=== PATIENT | female | born 1985 | race African-American/Black ===

== ENCOUNTER 2017-09-01 18:59 | Emergency (ER) | payer MEDICAID ==
--- NOTE | 2017-09-01 20:17 | PD ---
HPI Chief Complaint pelvic pain Date Seen: Sep 01, 2017 Time Seen: 20:13 Travel History International Travel<30 Days: No Contact w/Intl Traveler<30Days: No Known Affected Area: No History of Present Illness HPI Pt is a 22y/o @ 37.2wks. She has PNC with Rita Kim. She presents reporting b/l groin pain. No ctx, LOF, VB. +FM. Denies dysuria. She has a h/ o CSx4. Weeks Gestation: 37 Para: 4 : 5 History Past Medical History Medical History: Denies Significant Hx Obstetric History Obstetric History CSx4 Past Surgical History Narrative Surgical CSx4 Family History Family History: Negative Social History Alcohol Use: No Tobacco Use: No Substance Abuse: No Review of Systems Except as stated in HPI: all other systems reviewed are Neg Physical Exam Narrative General: well developed, well nourished, no acute distress HEENT: normocephalic atraumatic, extraocular movements intact, neck supple Abdomen: soft, gravid, nontender, nondistended Uterus: fundus term Extremities: full range of motion Skin: normal coloration, no rashes, no suspicious skin lesions noted Neurologic: cranial nerves 2-12 grossly intact, normal muscle tone, normal gait Psychiatric: normal mood and affect, appropriate FHTs: 135, +accels, no decels, moderate variability, reactive [place]: quiet Cvx: deferred Data Data Vital Signs Reviewed: Yes Orders Orders Vital Signs (Adult) .ON ADMISSION (09/01/17 20:12) ^ Labor Status (09/01/17 20:12) Urinalysis - C+S If Indicated (09/01/17 20:12) ^ Non Stress Test (09/01/17 20:12) Ed Discharge Order (09/01/17 20:12) MDM Plan 32y/o @ 37.2wks with pelvic pain, UTI. -- NST reactive -- toco quiet -- UTI, macrobid Rx -- has PNV tmw with Rita -- has c/s consult 09/11 Dispo: precautions reviewed Diagnosis Diagnosis: Primary Impression: 37 weeks gestation of Additional Impressions: Pelvic pain affecting UTI (urinary tract infection) during History of section Grand multipara in labor in third trimester Disposition: DISCHARGE HOME Condition: Stable Patient Instructions: General Instructions, Having Your Baby: The Labor Process (GEN), Urinary Tract Infection in (ED) Additional Instructions: RETURN FOR CONTRACTIONS, LOSS OF FLUID (WATER BREAKING), VAGINAL BLEEDING, OR DECREASED MOVEMENT DRINK 8-10 LARGE GLASSES OF WATER EVERY DAY MACROBID 100MG TAKE ONE PILL TWICE A DAY FOR 7 DAYS. FINISH ALL PILLS. KEEP SCHEDULED APPOINTMENT WITH YOUR PROVIDER Departure Forms: Tests/Procedures Ben Toure MD Sep 01, 2017 20:17
[2017-09-01 20:48] LABS: AMORPHOUS SEDIMENT, URINE RARE; BACTERIA, URINE OCC /hpf; BILIRUBIN, URINE NEG (NEG); BLOOD, URINE SMALL (NEG); GLUCOSE,URINE NEG (NEG); KETONE, URINE NEG (NEG); MUCUS URINE FEW /lpf (OCC); NITRITE,URINE NEG (NEG); PH, URINE 6.5 (5.0-8.5); SQUAMOUS EPITHELIAL CELL URINE 19 /hpf (0-5); URINE COLOR YELLOW (YELLW/STRAW); URINE LEUKOCYTE ESTERASE LARGE (NEG)
== END 2017-09-01 20:05 | disposition home or self-care (01) ==
LOC: HOBED 18:59
DX: O23.43 Unspecified infection of urinary tract in pregnancy, third trimester (principal); Z3A.37 37 weeks gestation of pregnancy
CPT/HCPCS: 59025; 81001

== ENCOUNTER 2017-09-13 07:37 | Inpatient (IN) | payer MEDICAID ==
[~2017-09-13] VITALS: Ht 160 cm; Wt 125.0 kg
[2017-09-13] VITALS (25 sets, daily range): BP systolic 103–116; BP diastolic 53–70; PULSE 70–100; RESP 15–20; TEMP 97.5–97.6; O2SAT 100
--- NOTE | 2017-09-13 08:20 | HHI.HP ---
HPI Chief Complaint Scheduled Date Seen: Sep 13, 2017 (Carlton Chester MD R2) Travel History International Travel<30 Days: No Contact w/Intl Traveler<30Days: No (Carlton Chester MD) History of Present Illness HPI Ms. Daniels is a 32-year-old presenting at 39/02 weeks gestation for her scheduled with tubal ligation. She reports no new complaints today and denies complete review of systems including no recent fevers, chills, shortness of breath, chest pain, NVD, vomiting, or calf tenderness. She has been receiving care with Rita Kim at [facility] and reported no complications thus far. She was recently treated for UTI with oral antibiotic and currently has no residual symptoms. She's had 4 previous C- sections without complications per her report. She endorses good movement and denies any vaginal bleeding, vaginal discharge, loss of fluid, or dysuria. Tubal ligation consent is within the chart. Weeks Gestation: 39 Para: 4 : 5 (Carlton Chester MD) History Past Medical History Narrative Medical Patient reports no past medical history. (Carlton Chester MD) Obstetric History Obstetric History -4 previous C-sections at term, no complications reported (Carlton Chester MD) Past Surgical History Narrative Surgical -4 C-sections reported (Carlton Chester MD) Family History Narrative Family History No family medical history reported (Carlton Chester MD) Social History Narrative Social History Patient reports no alcohol, tobacco, or illicit drug use during (Carlton Chester MD) Allergies-Medications (Allergen,Severity, Reaction): Coded Allergies: No Known Allergies (Unverified , 09/13/17) Review of Systems Except as stated in HPI: all other systems reviewed are Neg (per history of present illness) (Carlton Chester MD) Physical Exam Narrative GENERAL: Well-nourished, well-developed patient. SKIN: Warm and dry. HEAD: Normocephalic and atraumatic. EYES: No scleral icterus. No injection or drainage. ENT: No nasal drainage noted. Mucous membranes pink. Airway patent. NECK: Supple, trachea midline. No JVD. CARDIOVASCULAR: Regular rate and rhythm without murmurs, gallops, or rubs. RESPIRATORY: Breath sounds equal bilaterally. No accessory muscle use. ABDOMEN/GI: Abdomen soft, non-tender, bowel sounds present, no rebound, no guarding Gravid to 39 weeks size FHT's: Category: 1 Baseline: 140s Reactive: Positive Variability: Moderate Decels: None EXTREMITIES: No cyanosis or edema. BACK: Nontender without obvious deformity. No CVA tenderness. NEUROLOGICAL: Awake and alert. Motor and sensory grossly within normal limits. Five out of 5 muscle strength in all muscle groups. Normal speech. (Carlton Chester MD R2) Caprini VTE Risk Assessment Caprini VTE Risk Assessment: Mod/High Risk (score >= 2) Caprini Risk Assessment Model Point Value = 1 Point Value = 2 Point Value = 3 Point Value = 5 Age 41-60 Minor surgery BMI > 25 kg/m2 Swollen legs Varicose veins or History of unexplained or recurrent spontaneous Oral contraceptives or hormone replacement Sepsis (< 1 month) Serious lung disease, including pneumonia (< 1 month) Abnormal pulmonary function Acute myocardial infarction Congestive heart failure (< 1 month) History of inflammatory bowel disease Medical patient at bed rest Age 61-74 Arthroscopic surgery Major open surgery (> 45 min) Laparoscopic surgery (> 45 min) Malignancy Confined to bed (> 72 hours) Immobilizing plaster cast Central venous access Age >= 75 History of VTE Family history of VTE Factor V Leiden Prothrombin [id number] Lupus anticoagulant Anticardiolipin antibodies Elevated serum homocysteine Heparin-induced thrombocytopenia Other congenital or acquired thrombophilia Stroke (< 1 month) Elective arthroplasty Hip, pelvis, or leg fracture Acute spinal cord injury (< 1 month) Prophylaxis Regimen Total Risk Factor Score Risk Level Prophylaxis Regimen 0-1 Low Early ambulation 2 Moderate Order ONE of the following: *Sequential Compression Device (SCD) *Heparin 5000 units SQ BID 3-4 Higher Order ONE of the following medications: *Heparin 5000 units SQ TID *Enoxaparin/Lovenox 40 mg SQ daily (WT < 150 kg, CrCl > 30 mL/min) *Enoxaparin/Lovenox 30 mg SQ daily (WT < 150 kg, CrCl > 10-29 mL/min) *Enoxaparin/Lovenox 30 mg SQ BID (WT < 150 kg, CrCl > 30 mL/min) AND/OR *Sequential Compression Device (SCD) 5 or more Highest Order ONE of the following medications: *Heparin 5000 units SQ TID (Preferred with Epidurals) *Enoxaparin/Lovenox 40 mg SQ daily (WT < 150 kg, CrCl > 30 mL/min) *Enoxaparin/Lovenox 30 mg SQ daily (WT < 150 kg, CrCl > 10-29 mL/min) *Enoxaparin/Lovenox 30 mg SQ BID (WT < 150 kg, CrCl > 30 mL/min) AND *Sequential Compression Device (SCD) (Carlton Chester MD R2) Data Data Vital Signs Reviewed: Yes (Carlton Chester MD R2) Assessment/Plan Problem List: (1) 39 weeks gestation of ICD Codes: Z3A.39 - 39 weeks gestation of Assessment and Plan Ms. Daniels is a 32-year-old presenting at 39/0 weeks gestation for her scheduled repeat and tubal ligation 1. 39 weeks gestational -Continue routine antepartum care -Repeat scheduled, orders placed -Patient nothing by mouth since midnight -FHC category 1, reassuring 2. Tubal ligation -Tubal ligation consent in chart -Patient thoroughly educated at time of consent and agrees with tubal ligation plan SDW: Dr. Gutiérrez Discharge Planning Pending clinical course (Carlton Chester MD R2) Attending Attestation Patient seen and evaluated with resident under direct supervision, agree with assessment and plan. (Danyel Gutiérrez MD) Carlton Chester MD R2 Sep 13, 2017 08:20 Danyel Gutiérrez MD Sep 13, 2017 11:55
[2017-09-13] MEDS ORDERED: LACTATED RINGER'S 1000 ML INJ 1,000 ML IV ONE ×2 (08:21→12:00)
[2017-09-13 08:42] LABS: AUTOMATED NEUTROPHIL # 5.4 TH/MM3 (1.8-7.7); BASOPHIL % 0.2 % (0.0-2.0); EOSINOPHIL # 0.2 TH/MM3 (0-0.4); EOSINOPHIL % 2.5 % (0.0-4.0); HEMATOCRIT 34.8 % (35.0-46.0); HEMOGLOBIN 11.3 GM/DL (11.6-15.3); LYMPH % 33.7 % (9.0-44.0); LYMPHOCYTE # 3.1 TH/MM3 (1.0-4.8); MEAN CELL VOLUME 74.7 FL (80.0-100.0); MEAN CORPUSCULAR HEMOGLOBIN 24.3 PG (27.0-34.0); MEAN CORPUSCULAR HGB CONC 32.5 % (32.0-36.0); MEAN PLATELET VOLUME 8.6 FL (7.0-11.0); MONO % 4.8 % (0.0-8.0); MONOCYTE # 0.4 TH/MM3 (0-0.9); NEUT % 58.8 % (16.0-70.0); PLATELET COUNT 213 TH/MM3 (150-450); RED BLOOD COUNT 4.66 MIL/MM3 (4.00-5.30); RED CELL DISTRIBUTION WIDTH 16.1 % (11.6-17.2); WHITE BLOOD COUNT 9.1 TH/MM3 (4.0-11.0)
[2017-09-13] MEDS ORDERED: LACTATED RINGER'S 1000 ML INJ 1,000 ML IV SCH ×2 (08:51→16:46)
[2017-09-13] MEDS ORDERED: ceFAZolin 2 GM PREMIX 50 ML IV SCH (09:30)
[2017-09-13] MEDS ORDERED: ACETAMINOPHEN 1000 MG/100 ML 100 ML IV ONE (09:57)
[2017-09-13] MEDS ORDERED: MORPHINE SULFATE PF 5 MG/10 ML VIAL ONE (09:57)
[2017-09-13 09:58] LABS: BACTERIA, URINE OCC /hpf; BILIRUBIN, URINE NEG (NEG); BLOOD, URINE TRACE (NEG); GLUCOSE,URINE NEG (NEG); KETONE, URINE 10 mg/dL (NEG); MUCUS URINE FEW /lpf (OCC); NITRITE,URINE NEG (NEG); PH, URINE 6.5 (5.0-8.5); SQUAMOUS EPITHELIAL CELL URINE 28 /hpf (0-5); URINE COLOR YELLOW (YELLW/STRAW); URINE LEUKOCYTE ESTERASE LARGE (NEG)
[2017-09-13] MEDS ORDERED: CITRIC ACID-SODIUM CITRATE LIQ 30 ML UDC PO SCH (10:00)
--- NOTE | 2017-09-13 11:46 | PD.OP ---
Operative Report Date of Surgery: Sep 13, 2017 Preoperative Diagnosis: 39 week intrauterine , prior section 4, desired sterilization Postoperative Diagnosis: Same Procedure: Repeat lower uterine segment transverse section and bilateral tubal sterilization The patient was taken to the operating room and after menstruation of a satisfactory spinal anesthetic was prepped and draped in the dorsal supine position. The skin was incised along the previous scar and the subcutaneous tissue was sharply dissected away down to the level of the fascia which was nicked in the midline and extended bilaterally with scissors. The fascia was from the underlying muscle with sharp and blunt dissection. The muscle was densely adherent in the midline and were sharply dissected away down to the level of the peritoneum which was bluntly entered. A transverse lower uterine segment hysterotomy was created and membranes were encountered and ruptured with clear fluid returning. The vertex was elevated out of the pelvic inlet and delivered easily through the hysterotomy. With gentle traction and fundal pressure the remainder the infant followed easily. Delayed cord clamping was accomplished. The placenta was delivered by fundal massage and gentle traction. The uterine cavity was wiped with a moistened lap sponge. The hysterotomy was then closed with a running suture of 0 Monocryl. The right fallopian tube was identified and traced to its fimbriated end. A knuckle of tube was elevated and doubly ligated with 0 plain gut. The knuckle of tube was then excised. The same technique was carried out on the opposite tube. After observing excellent hemostasis at the hysterotomy and tubal sites the paracolic gutters and posterior cul-de-sac were evacuated of amniotic fluid and blood. The fascia was then closed with #1 PDS. The septations tissue was closed with 3-0 Vicryl and the skin with 4-0 Vicryl and tissue glue. Anesthesia: Spinal Surgeon: Danyel Gutiérrez Electronic Warfare Operator(s): Erum Saeed Operation and Findings: Normal appearing tubes ovaries and uterus The procedure itself is dictated under procedure Estimated blood loss 500 cc, sponges. Counts were correct 3 No apparent complications Danyel Gutiérrez MD Sep 13, 2017 11:46
[2017-09-13] MEDS ORDERED: OXYTOCIN 30 UNITS-500ML PREMIX 500 ML IV ONE (12:00)
[2017-09-13] MEDS ORDERED: ceFAZolin INJ 1,000 MG VIAL IV ONE (12:00)
[2017-09-13] MEDS ORDERED: SIMETHICONE 80 MG CHEWABLE TAB PO PRN (12:00)
[2017-09-13] MEDS ORDERED: DEXAMETHASONE SOD PHOS 4 MG/ML VIAL IV ONE (12:00)
[2017-09-13] MEDS ORDERED: PHENYLEPH/NS 1000 MCG/10 ML SYR IV ONE (12:00)
[2017-09-13] MEDS: ACETAMINOPHEN 1000 MG/100 ML 100 ML IV SCH ×2 (12:00→18:28)
[2017-09-13] MEDS ORDERED: OXYTOCIN 10 UNIT/ML AMP IV ONE (12:00)
[2017-09-13] MEDS ORDERED: ONDANSETRON HCL 4 MG/2 ML VIAL IV ONE (12:00)
[2017-09-13] MEDS ORDERED: SODIUM CHLORIDE 0.9% FLUSH 10 ML FLUSH IV FLUSH PRN (12:00)
[2017-09-13] MEDS ORDERED: ONDANSETRON HCL 4 MG/2 ML VIAL IV PUSH PRN (12:00)
[2017-09-13] MEDS ORDERED: DOCUSATE SODIUM 50 MG/SENNA 8.6 MG TAB PO PRN (12:00)
[2017-09-13] MEDS ORDERED: KETOROLAC TROMETHAMINE 30 MG/ML (IVP) VIAL ONE (12:05)
[2017-09-13] MEDS: KETOROLAC TROMETHAMINE 60 MG/2 ML (IM) VIAL IM SCH ×2 (12:21→18:00)
[2017-09-13] MEDS ORDERED: PROMETHAZINE INJ 25 MG/ML VIAL IM PRN (14:15)
[2017-09-13] MEDS ORDERED: EPIDURAL-DO NOT ADMINISTER ANTICOAGULANTS PRN (14:30)
[2017-09-13] MEDS ORDERED: EPIDURAL-DIPHENHYDRAMINE HCL 50 MG/ML VIAL IV PUSH PRN (14:30)
[2017-09-13] MEDS ORDERED: EPIDURAL-NO SYSTEMIC NARCOTICS PRN (14:30)
[2017-09-13] MEDS ORDERED: EPIDURAL-NALOXONE HCL 0.4 MG/ML AMP IV PUSH PRN (14:30)
[2017-09-13] MEDS ORDERED: EPIDURAL-DIPHENHYDRAMINE HCL 50 MG CAP PO PRN (14:30)
[2017-09-13] MEDS ORDERED: OXYTOCIN 30 UNITS-500ML PREMIX 500 ML IV PRN (22:00)
[2017-09-14] MEDS: SODIUM CHLORIDE 0.9% FLUSH 10 ML FLUSH IV FLUSH SCH ×2 (00:35→21:00)
[2017-09-14] MEDS: KETOROLAC TROMETHAMINE 60 MG/2 ML (IM) VIAL IM SCH ×2 (00:35→05:53)
[2017-09-14] MEDS: ACETAMINOPHEN 1000 MG/100 ML 100 ML IV SCH ×2 (00:35→05:53)
[2017-09-14 02:30] VITALS: BP 119/77; PULSE 74; RESP 18; TEMP 97.3
[2017-09-14 05:49] LABS: AUTOMATED NEUTROPHIL # 7.4 TH/MM3 (1.8-7.7); BASOPHIL % 0.1 % (0.0-2.0); EOSINOPHIL # 0.1 TH/MM3 (0-0.4); EOSINOPHIL % 0.8 % (0.0-4.0); HEMATOCRIT 30.5 % (35.0-46.0); HEMOGLOBIN 10.1 GM/DL (11.6-15.3); LYMPHOCYTE # 3.1 TH/MM3 (1.0-4.8); MEAN CELL VOLUME 73.8 FL (80.0-100.0); MEAN CORPUSCULAR HEMOGLOBIN 24.4 PG (27.0-34.0); MEAN PLATELET VOLUME 8.5 FL (7.0-11.0); MONO % 7.4 % (0.0-8.0); MONOCYTE # 0.9 TH/MM3 (0-0.9); NEUT % 64.7 % (16.0-70.0); PLATELET COUNT 191 TH/MM3 (150-450); RED BLOOD COUNT 4.14 MIL/MM3 (4.00-5.30); RED CELL DISTRIBUTION WIDTH 16.3 % (11.6-17.2); WHITE BLOOD COUNT 11.5 TH/MM3 (4.0-11.0)
--- NOTE | 2017-09-14 06:15 | HHI.OB ---
Subjective Post Operative Day: 1 Remarks Pt seen and examined this morning. Postoperative day # 1 AFVSS overnight. Incision not draining. Decreased lochia. Denies dysuria. No breast tenderness. She is feeding the baby via breast. Appetite good. No nausea or vomiting. Patient has not yet had a bowel movement and currently does not endorse bowel gas. Ambulating well. Denies calf pain or shortness of breath. Otherwise, she is doing well this morning and has no other concerns. (Carlton Chester MD R2) Remarks Patient seen and evaluated with resident under direct supervision, agree with assessment and plan. (Danyel Gutiérrez MD) Objective Vitals/I&O Vital Signs Date Time Temp Pulse Resp B/P (MAP) Pulse Ox O2 Delivery O2 Flow Rate FiO2 09/14/17 02:30 97.3 74 18 119/77 (91) 09/13/17 20:50 97.6 80 18 116/65 (82) 09/13/17 12:45 97.5 18 09/13/17 12:45 76 110/70 (83) 09/13/17 12:45 100 09/13/17 12:30 70 18 103/56 (72) 100 09/13/17 12:15 73 104/56 (72) 09/13/17 12:15 15 100 09/13/17 11:53 77 20 104/53 (70) 09/13/17 11:53 97.6 100 09/13/17 10:15 86 09/13/17 10:10 91 09/13/17 10:05 85 09/13/17 10:00 86 09/13/17 09:55 86 09/13/17 09:50 81 09/13/17 09:20 18 09/13/17 09:15 83 09/13/17 09:05 81 09/13/17 09:00 85 09/13/17 08:55 84 09/13/17 08:50 84 09/13/17 08:45 89 09/13/17 08:40 88 09/13/17 08:35 88 09/13/17 08:30 87 09/13/17 08:25 97 09/13/17 08:20 89 09/13/17 08:15 89 09/13/17 07:55 100 (Carlton Chester MD R2) Result Diagram: 09/14/17 0520 Objective Remarks GENERAL: Well-nourished, well-developed patient. CARDIOVASCULAR: Regular rate and rhythm without murmurs, gallops, or rubs. RESPIRATORY: Breath sounds equal bilaterally. No accessory muscle use. ABDOMEN/GI: Abdomen soft, non-tender, bowel sounds present. Incision: Clean, dry and intact. Fundus: Firm, non-tender at umbilicus. GENITOURINARY: Light to moderate bleeding. EXTREMITIES: No cyanosis or edema, non-tender, without signs of DVT. Medications and IVs Current Medications Medications (Trade) Dose Ordered Sig/Estella Route Start Time Stop Time Status Last Admin Cefazolin Sodium/ Dextrose 50 ml @ 100 mls/hr PASTRY ARTIST IV 09/13/17 09:30 09/17/17 09:29 09/13/17 10:09 (Bicitra Liq) 30 ml PASTRY ARTIST PO 09/13/17 10:00 09/17/17 09:59 09/13/17 10:09 Lactated Ringer's 1,000 ml @ 100 mls/hr Q10H IV 09/13/17 16:46 09/14/17 12:45 09/13/17 21:08 Oxytocin 500 ml @ 100 mls/hr UNSCH X1 PRN IV 09/13/17 22:00 09/14/17 21:59 (NS Flush) 2 ml BID IV FLUSH 09/13/17 21:00 09/14/17 00:35 (NS Flush) 2 ml UNSCH PRN IV FLUSH 09/13/17 12:00 (Mylicon Chew) 80 mg QID PRN PO 09/13/17 12:00 Acetaminophen 100 ml @ 400 mls/hr Q6HR IV 09/13/17 12:00 09/14/17 06:14 09/13/17 18:28 (Motrin) 600 mg Q6H PRN PO 09/14/17 12:00 (Percocet 5-325 Mg) 1 tab Q4H PRN PO 09/14/17 12:00 (Sanjana-Colace) 2 tab Q12H PRN PO 09/13/17 12:00 (M-M-R Ii Inj) 0.5 ml ONCE ONCE SQ 09/14/17 16:00 09/14/17 16:01 (Boostrix Inj) 0.5 ml ONCE ONCE IM 09/14/17 16:00 09/14/17 16:01 (Zofran Inj) 4 mg Q6H PRN IV PUSH 09/13/17 12:00 (Phenergan Inj) 25 mg Q6H PRN IM 09/13/17 14:15 09/13/17 14:43 Miscellaneous Information NO SYSTEMIC NARCOTICS TO BE GIVEN FO... UNSCH PRN .XX 09/13/17 14:30 09/14/17 14:29 (Narcan Inj) 0.4 mg UNSCH PRN IV PUSH 09/13/17 14:30 09/14/17 14:29 (Benadryl Inj) 25 mg Q6H PRN IV PUSH 09/13/17 14:30 09/14/17 14:29 (Benadryl) 50 mg Q6H PRN PO 09/13/17 14:30 09/14/17 14:29 Miscellaneous Information ALL NURSING DEPARTMENTS UNSCH PRN .XX 09/13/17 14:30 09/14/17 14:29 (Carlton Chester MD R2) Assessment/Plan Problem List: (1) 39 weeks gestation of ICD Codes: Z3A.39 - 39 weeks gestation of Status: Acute (2) Delivery by section of full-term ICD Codes: O82 - Encounter for delivery without indication Status: Acute Assessment and Plan 32 y/o female who is POD# 1 s/p CXN. -Continue routine care. -Percocet and Motrin PRN pain. -Encouraged OOB. Advised pelvic rest for 6 wks. Patient will need follow-up appointment in 1 week for incision check. -Re: ctrl, she had a tubal ligation completed during . -Anticipate discharge in 1-2 days pending clinical course. dw Dr. Brock MD Discharge Planning In 1-2 days pending clinical course (Carlton Chester MD R2) Carlton Chester MD R2 Sep 14, 2017 06:15 Danyel Gutiérrez MD Sep 16, 2017 07:34
[2017-09-14 08:00] VITALS: BP 103/60; PULSE 78; RESP 18; TEMP 98.2; O2SAT 99
[2017-09-14] MEDS ORDERED: oxyCODONE/ACETAMINOPHEN 5 MG/325 MG TAB PO PRN (10:00)
[2017-09-14] MEDS: IBUPROFEN 600 MG TAB PO PRN ×2 (10:14→16:40)
[2017-09-14 11:24] VITALS: BP 105/56; PULSE 98; RESP 20; O2SAT 99
[2017-09-14] MEDS ORDERED: DIPHTH/TETANUS/ACEL PERTUSSIS (BOOSTER) 0.5 ML VIAL/PFS IM ONE (16:00)
[2017-09-14] MEDS ORDERED: MEASLES, MUMPS, RUBELLA VACCINE 0.5 ML VIAL SQ ONE (16:00)
[2017-09-14 20:06] VITALS: BP 114/64; PULSE 90; RESP 17; TEMP 98.1
[2017-09-14] MEDS: ACETAMINOPHEN 325 MG TAB PO PRN (21:03)
[2017-09-15] MEDS: ACETAMINOPHEN 325 MG TAB PO PRN ×3 (05:15→19:06)
[2017-09-15] MEDS: IBUPROFEN 600 MG TAB PO PRN ×3 (05:15→19:06)
[2017-09-15 07:10] VITALS: BP 119/76; PULSE 79; RESP 20; TEMP 97.8
[2017-09-15] MEDS ORDERED: IBUP-232 PO (08:41)
--- NOTE | 2017-09-15 08:41 | HHI.DCPOC ---
Discharge Care Plan Diagnosis: (1) Delivery by section of full-term infant Report Symptoms to Your Doctor -Temperature above 100.5 degrees -Redness, of incision or excessive or foul smelling drainage -Unusual pain or calf pain -Increased vaginal bleeding -Painful or difficulty urinating -Feelings of extreme sadness or anxiety after 2 weeks Goals to Promote Your Health * To prevent worsening of your condition and complications * To maintain your health at the optimal level Directions to Meet Your Goals Take your medications as prescribed Follow your dietary instruction Follow activity as directed Ensure plenty of rest for recovery Drink fluids for hydration Keep your appointments as scheduled Take your immunizations and boosters as scheduled If your symptoms worsen call your PCP, if no PCP go to Urgent Care Center or Emergency Room Smoking is Dangerous to Your Health. Avoid second hand smoke Call the 24-hour crisis hotline for domestic abuse at Ildefonso Bryson MD Sep 15, 2017 08:41
--- NOTE | 2017-09-15 08:57 | HHI.OB ---
Subjective Remarks 32 year old s/p C/S at 39 wks gestation, POD 2. AFVSS. Patient reports she is feeling well. Bleeding is decreasing and pain is well-controlled. She is breast feeding and bonding well with baby. Ambulating without difficulties. She is tolerating a diet without nausea or vomiting. She has not had a bowel movement. She has passed gas. Denies chest pain, dysuria, shortness of breath, or calf pain. Objective Vitals/I&O Vital Signs Date Time Temp Pulse Resp B/P (MAP) Pulse Ox O2 Delivery O2 Flow Rate FiO2 09/15/17 07:10 97.8 79 20 119/76 (90) 09/14/17 20:06 98.1 09/14/17 20:06 90 17 114/64 (81) 09/14/17 11:24 98 20 105/56 (72) 99 Result Diagram: 09/14/17 0520 Objective Remarks GENERAL: Well-nourished, well-developed patient. CARDIOVASCULAR: Regular rate and rhythm without murmurs, gallops, or rubs. RESPIRATORY: Breath sounds equal bilaterally. No accessory muscle use. ABDOMEN/GI: Abdomen soft, non-tender, bowel sounds present. Incision: Clean, dry and intact. Fundus: Firm, non-tender at 2 cm below umbilicus. GENITOURINARY: Light to moderate bleeding. EXTREMITIES: No cyanosis or edema, non-tender, without signs of DVT. Medications and IVs Current Medications Medications (Trade) Dose Ordered Sig/Estella Route Start Time Stop Time Status Last Admin Cefazolin Sodium/ Dextrose 50 ml @ 100 mls/hr DIGITAL PHOTOGRAPHIC PRINTER IV 09/13/17 09:30 09/17/17 09:29 09/13/17 10:09 (Bicitra Liq) 30 ml DIGITAL PHOTOGRAPHIC PRINTER PO 09/13/17 10:00 09/17/17 09:59 09/13/17 10:09 (NS Flush) 2 ml BID IV FLUSH 09/13/17 21:00 09/14/17 00:35 (NS Flush) 2 ml UNSCH PRN IV FLUSH 09/13/17 12:00 (Mylicon Chew) 80 mg QID PRN PO 09/13/17 12:00 (Motrin) 600 mg Q6H PRN PO 3/10/18 10:00 09/15/17 05:15 (Percocet 5-325 Mg) 1 tab Q4H PRN PO 09/14/17 10:00 (Sanjana-Colace) 2 tab Q12H PRN PO 09/13/17 12:00 (Zofran Inj) 4 mg Q6H PRN IV PUSH 09/13/17 12:00 (Phenergan Inj) 25 mg Q6H PRN IM 09/13/17 14:15 09/13/17 14:43 (Tylenol) 650 mg Q4H PRN PO 09/14/17 20:30 09/15/17 05:15 Assessment/Plan Problem List: (1) 39 weeks gestation of ICD Codes: Z3A.39 - 39 weeks gestation of Status: Acute (2) Delivery by section of full-term infant ICD Codes: O82 - Encounter for delivery without indication Status: Acute Assessment and Plan 32 y/o female who is POD# 1 s/p CXN -Continue routine care. -Percocet and Motrin PRN pain. -Encouraged OOB. Advised pelvic rest for 6 wks. Patient will need follow-up appointment in 1 week for incision check. -Re: ctrl, she had a tubal ligation completed during . -Discharge today or tomorrow Ildefonso Bryson MD Sep 15, 2017 08:57
[2017-09-15] MEDS: SODIUM CHLORIDE 0.9% FLUSH 10 ML FLUSH IV FLUSH SCH ×2 (09:00→21:00)
[2017-09-15 19:05] VITALS: BP 137/70; PULSE 87; RESP 18; TEMP 98.2
[2017-09-16] MEDS: IBUPROFEN 600 MG TAB PO PRN ×2 (02:39→13:03)
[2017-09-16] MEDS: ACETAMINOPHEN 325 MG TAB PO PRN ×2 (02:40→13:03)
--- NOTE | 2017-09-16 07:26 | HHI.OB ---
Subjective Post Operative Day: 3 Remarks 32 year old s/p C/S at 39 wks gestation, POD 3. AFVSS. Patient reports she is feeling well. Bleeding is much decreased and pain is well-controlled. She is breast feeding and bonding well with baby. Ambulating without difficulties. She is tolerating a diet without nausea or vomiting. She has had a bowel movement. She has passed gas. Denies chest pain, dysuria, shortness of breath, or calf pain. Objective Vitals/I&O Vital Signs Date Time Temp Pulse Resp B/P (MAP) Pulse Ox O2 Delivery O2 Flow Rate FiO2 09/15/17 19:05 98.2 87 18 137/70 (92) Result Diagram: 09/14/17 0520 Objective Remarks GENERAL: Well-nourished, well-developed patient. CARDIOVASCULAR: Regular rate and rhythm without murmurs, gallops, or rubs. RESPIRATORY: Breath sounds equal bilaterally. No accessory muscle use. ABDOMEN/GI: Abdomen soft, non-tender, bowel sounds present. Incision: Clean, dry and intact. Fundus: Firm, non-tender below umbilicus. GENITOURINARY: Light to moderate bleeding. EXTREMITIES: No cyanosis or edema, non-tender, without signs of DVT. Medications and IVs Current Medications Medications (Trade) Dose Ordered Sig/Estella Route Start Time Stop Time Status Last Admin Cefazolin Sodium/ Dextrose 50 ml @ 100 mls/hr SUPERVISOR BODY ASSEMBLY IV 09/13/17 09:30 09/17/17 09:29 09/13/17 10:09 (Bicitra Liq) 30 ml SUPERVISOR BODY ASSEMBLY PO 09/13/17 10:00 09/17/17 09:59 09/13/17 10:09 (NS Flush) 2 ml BID IV FLUSH 09/13/17 21:00 09/14/17 00:35 (NS Flush) 2 ml UNSCH PRN IV FLUSH 09/13/17 12:00 (Mylicon Chew) 80 mg QID PRN PO 09/13/17 12:00 (Motrin) 600 mg Q6H PRN PO 09/14/17 10:00 09/16/17 02:39 (Percocet 5-325 Mg) 1 tab Q4H PRN PO 09/14/17 10:00 (Sanjana-Colace) 2 tab Q12H PRN PO 09/13/17 12:00 (Zofran Inj) 4 mg Q6H PRN IV PUSH 09/13/17 12:00 (Phenergan Inj) 25 mg Q6H PRN IM 09/13/17 14:15 09/13/17 14:43 (Tylenol) 650 mg Q4H PRN PO 09/14/17 20:30 09/16/17 02:40 Assessment/Plan Problem List: (1) 39 weeks gestation of ICD Codes: Z3A.39 - 39 weeks gestation of Status: Acute (2) Delivery by section of full-term infant ICD Codes: O82 - Encounter for delivery without indication Status: Acute Assessment and Plan 32 y/o female who is POD# 3 s/p CXN -Continue routine care. -Percocet and Motrin PRN pain. -Encouraged OOB. Advised pelvic rest for 6 wks. Patient will need follow-up appointment in 1 week for incision check. -Re: ctrl, she had a tubal ligation completed during . -Discharge home today WDW Aliya Matthews MD Sep 16, 2017 07:26
[2017-09-16 08:03] VITALS: BP 123/67; PULSE 81; RESP 18; TEMP 98
== END 2017-09-16 15:00 | disposition home or self-care (01) | DRG 766 ==
LOC: H2EB 07:37 → H1EA 13:04
PROVIDERS: ADMIT Obstetrics & Gynecology; ATTEND Obstetrics & Gynecology
PROC: 10D00Z1 Extraction of Products of Conception, Low, Open Approach (ICD-10-PCS; principal; 2017-09-13)
PROC: 0UB70ZZ Excision of Bilateral Fallopian Tubes, Open Approach (ICD-10-PCS; 2017-09-13)
DX: O34.211 Maternal care for low transverse scar from previous cesarean delivery (principal); Z23 Encounter for immunization; Z37.0 Single live birth; Z87.440 Personal history of urinary (tract) infections; Z3A.39 39 weeks gestation of pregnancy; Z30.2 Encounter for sterilization
CPT/HCPCS: 59025; 76815; 80307; 81001; 85025; 86850; 86900; 86901; 87086; 88302; 90715; J0131; J0690; J1100; J1885; J2274; J2370; J2405; J2550; J2590; J7120